=== PATIENT | male | born 1965 | race African-American/Black ===

== ENCOUNTER 2017-11-08 03:30 | Emergency (ER) | payer MEDICAID, MEDICARE, OTHER ==
[~2017-11-08] VITALS: Ht 177.8 cm; Wt 82.0 kg
[~2017-11-08 03:30] MED LIST: NO HOME MEDS
[2017-11-08] MEDS ORDERED: DIPHENHYDRAMINE 50MG/ML VIAL IV ONE (04:15)
[2017-11-08] MEDS ORDERED: METHYLPREDNISOLONE SOD SUCC 125 MG/2 ML VIAL IV ONE (04:15)
[2017-11-08 07:05] VITALS: BP 122/71
== END 2017-11-08 07:06 | disposition home or self-care (01) ==
LOC: ER 03:30
DX: R51 Headache (principal); R22.0 Localized swelling, mass and lump, head; I10 Essential (primary) hypertension; E78.00 Pure hypercholesterolemia, unspecified; F31.9 Bipolar disorder, unspecified; Z98.890 Other specified postprocedural states; Z88.8 Allergy status to other drugs, medicaments and biological substances
CPT/HCPCS: 96374; 96375; 99291; J1200; J2930; Z7610

== ENCOUNTER 2018-08-20 04:02 | Emergency (ER) | payer OTHER ==
[~2018-08-20] VITALS: Ht 170.2 cm; Wt 86.0 kg
[2018-08-20] MEDS ORDERED: MORPHINE SULFATE 4 MG/ML CPJ (NOT FOR IM USE) IV STA (06:46)
[2018-08-20 07:14] LABS: CLARITY URINE CLOUDY (CLEAR); COLOR URINE YELLOW (YELLOW); KETONES URINE NEGATIVE (NEGATIVE); LEUKOCYTE ESTERASE URINE 2+ (NEGATIVE); NITRITE URINE NEGATIVE (NEGATIVE); OCCULT BLOOD URINE 2+ (NEGATIVE); PH URINE 5.5 (4.5-8.0); PROTEIN URINE 3+ (NEGATIVE); SPECIFIC GRAVITY URINE 1.023 (1.005-1.030); UROBILINOGEN URINE 0.2 E.U./dL (0.2-1.0)
[2018-08-20 08:04] LABS: BASOPHILS % 0.4 % (0.0-2.0); EOSINOPHILS % 2.3 % (0.0-5.0); HEMATOCRIT. 34.3 % (42.0-52.0); HEMOGLOBIN. 11.4 g/dL (14.0-18.0); LYMPHOCYTES % 12.6 % (20.0-50.0); MEAN CORPUSCULAR HEMOGLOBIN 30.1 pg (28.0-32.0); MEAN CORPUSCULAR VOLUME 90.3 fL (80.0-94.0); MONOCYTES % 7.9 % (2.0-8.0); NEUTROPHILS % 76.8 % (40.0-76.0); PLATELET 268 x1000/uL (130-400); RED CELL DISTRIBUTION WIDTH 14.6 % (11.6-14.6)
[2018-08-20 08:11] LABS: CHLORIDE 104 mEq/L (98-107)
[2018-08-20 08:12] LABS: INR 1.1; PROTHROMBIN TIME 10.7 sec (9.1-11.1)
[2018-08-20 09:23] VITALS: BP 134/58
== END 2018-08-20 09:23 | disposition home or self-care (01) ==
LOC: ER 04:02
DX: N30.00 Acute cystitis without hematuria (principal); R30.0 Dysuria; F31.9 Bipolar disorder, unspecified; E78.00 Pure hypercholesterolemia, unspecified; I10 Essential (primary) hypertension; Z88.8 Allergy status to other drugs, medicaments and biological substances; Z88.9 Allergy status to unspecified drugs, medicaments and biological substances
CPT/HCPCS: 36415; 80053; 81003; 83690; 85025; 85610; 87086; 96374; 99284; J2270

== ENCOUNTER 2018-11-28 21:07 | Emergency (ER) | payer MEDICAID, OTHER ==
[~2018-11-28] VITALS: Ht 172.7 cm; Wt 93.0 kg
[2018-11-28] MEDS ORDERED: IBUPROFEN 600MG TABLET PO ONE (23:30)
[2018-11-29 00:09] VITALS: BP 152/70
== END 2018-11-29 00:11 | disposition home or self-care (01) ==
LOC: ER 21:07
DX: J39.8 Other specified diseases of upper respiratory tract (principal); F31.9 Bipolar disorder, unspecified; E78.00 Pure hypercholesterolemia, unspecified; Z98.890 Other specified postprocedural states; Z88.8 Allergy status to other drugs, medicaments and biological substances
CPT/HCPCS: 87804; 99283

== ENCOUNTER 2019-07-28 07:32 | Emergency (ER) | payer MEDICARE, MEDICAID ==
[~2019-07-28] VITALS: Ht 172.7 cm; Wt 98.0 kg
[2019-07-28] MEDS ORDERED: SODIUM CHLORIDE 0.9% 1,000 ML IV ONE (08:03)
[2019-07-28] MEDS ORDERED: KETOROLAC 30MG/ML VIAL IV STA (08:03)
[2019-07-28] MEDS ORDERED: METOCLOPRAMIDE HCL 10MG/2ML VIAL IV ONE (08:15)
[2019-07-28 09:57] VITALS: BP 130/72
== END 2019-07-28 09:59 | disposition home or self-care (01) ==
LOC: ER 07:32
DX: B34.9 Viral infection, unspecified (principal)
CPT/HCPCS: 96374; 96375; 99283; J1885; J2765; J7030

== ENCOUNTER 2020-01-17 17:39 | Emergency (ER) | payer BC, MEDICAID, MEDICARE, OTHER ==
[~2020-01-17] VITALS: Ht 177.8 cm; Wt 97.0 kg
[2020-01-17] MEDS ORDERED: ACETAMINOPHEN WITH CODEINE 300/30MG TABLET PO STA (18:04)
[2020-01-17 18:39] LABS: BASOPHILS % 0.5 % (0.0-2.0); EOSINOPHILS % 0.6 % (0.0-5.0); HEMATOCRIT. 44.3 % (42.0-52.0); HEMOGLOBIN. 15.1 g/dL (14.0-18.0); LYMPHOCYTES % 19.7 % (20.0-50.0); MEAN CORPUSCULAR HEMOGLOBIN 28.6 pg (28.0-32.0); MEAN CORPUSCULAR VOLUME 84.2 fL (80.0-94.0); MEAN PLATELET VOLUME 9.2 fl (7.4-10.4); MONOCYTES % 11.2 % (2.0-8.0); PLATELET 239 x1000/uL (130-400); RED BLOOD CELL COUNT 5.27 mill/uL (4.7-6.1); RED CELL DISTRIBUTION WIDTH 13.9 % (11.6-14.6)
[2020-01-17 18:46] LABS: CHLORIDE 104 mEq/L (98-107)
[2020-01-17 20:26] LABS: CLARITY URINE TURBID (CLEAR); COLOR URINE RED (YELLOW); KETONES URINE 1+ (NEGATIVE); LEUKOCYTE ESTERASE URINE 2+ (NEGATIVE); NITRITE URINE POSITIVE (NEGATIVE); OCCULT BLOOD URINE 3+ (NEGATIVE); PH URINE 8.5 (4.5-8.0); PROTEIN URINE 2+ (NEGATIVE)
[2020-01-17 20:58] VITALS: BP 116/78
== END 2020-01-17 21:00 | disposition home or self-care (01) ==
LOC: ER 17:39
DX: N39.0 Urinary tract infection, site not specified (principal); R31.0 Gross hematuria; R03.0 Elevated blood-pressure reading, without diagnosis of hypertension
CPT/HCPCS: 36415; 74176; 80053; 81003; 85025; 99284

== ENCOUNTER 2020-03-31 10:01 | Emergency (ER) | payer BC ==
[~2020-03-31] VITALS: Ht 170.2 cm; Wt 87.0 kg
[2020-03-31 11:18] LABS: BASOPHILS % 0.7 % (0.0-2.0); EOSINOPHILS % 1.4 % (0.0-5.0); HEMATOCRIT. 37.8 % (42.0-52.0); LYMPHOCYTES % 19.9 % (20.0-50.0); MEAN CORPUSCULAR HEMOGLOBIN 30.1 pg (28.0-32.0); MEAN CORPUSCULAR VOLUME 87.5 fL (80.0-94.0); MEAN PLATELET VOLUME 8.4 fl (7.4-10.4); MONOCYTES % 5.4 % (2.0-8.0); NEUTROPHILS % 72.6 % (40.0-76.0); PLATELET 251 x1000/uL (130-400); RED BLOOD CELL COUNT 4.32 mill/uL (4.7-6.1)
[2020-03-31 11:27] LABS: CHLORIDE 111 mEq/L (98-107)
[2020-03-31 11:32] LABS: ETHANOL BLOOD 132 mg/dL
[2020-03-31 11:35] LABS: *AMPHETAMINES SCREEN URINE NEGATIVE (NEGATIVE); *BARBITURATES SCREEN URINE NEGATIVE (NEGATIVE); *BENZODIAZEPINES SCREEN URINE NEGATIVE (NEGATIVE); *COCAINE SCREEN URINE NEGATIVE (NEGATIVE); METHADONE URINE SCREEN NEGATIVE (NEGATIVE); OPIATES URINE SCREEN NEGATIVE (NEGATIVE)
[2020-03-31 11:36] LABS: CANNABINOID URINE SCREEN NEGATIVE (NEGATIVE); PHENCYCLIDINE URINE SCREEN NEGATIVE (NEGATIVE)
[2020-03-31 12:14] VITALS: BP 129/62
== END 2020-03-31 12:24 | disposition home or self-care (01) ==
LOC: ER 10:01
DX: F10.129 Alcohol abuse with intoxication, unspecified (principal); Y90.6 Blood alcohol level of 120-199 mg/100 ml; F31.9 Bipolar disorder, unspecified
CPT/HCPCS: 36415; 80053; 80305; 80307; 80320; 80329; 85025; 99283; G0480

== ENCOUNTER 2020-11-22 20:01 | Emergency (ER) | payer OTHER, MEDICAID ==
[~2020-11-22] VITALS: Ht 175.3 cm; Wt 113.0 kg
[2020-11-22] MEDS ORDERED: ACETAMINOPHEN 325MG TABLET PO STA (21:05)
[2020-11-22] MEDS ORDERED: LORAZEPAM 1MG TABLET PO ONE (21:15)
[2020-11-22 22:05] LABS: BASOPHILS % 0.3 % (0.0-2.0); EOSINOPHILS % 2.4 % (0.0-5.0); HEMATOCRIT. 38.1 % (42.0-52.0); HEMOGLOBIN. 13.2 g/dL (14.0-18.0); LYMPHOCYTES % 15.2 % (20.0-50.0); MEAN CORPUSCULAR HEMOGLOBIN 29.9 pg (28.0-32.0); MEAN CORPUSCULAR VOLUME 86.3 fL (80.0-94.0); MEAN PLATELET VOLUME 8.9 fl (7.4-10.4); MONOCYTES % 6.8 % (2.0-8.0); NEUTROPHILS % 75.3 % (40.0-76.0); PLATELET 212 x1000/uL (130-400); RED BLOOD CELL COUNT 4.41 mill/uL (4.7-6.1); RED CELL DISTRIBUTION WIDTH 13.9 % (11.6-14.6)
[2020-11-22 22:10] LABS: CHLORIDE 107 mEq/L (98-107)
[2020-11-22 22:13] LABS: ETHANOL BLOOD < 10 mg/dL
[2020-11-22 22:14] LABS: CLARITY URINE CLOUDY (CLEAR); COLOR URINE YELLOW (YELLOW); KETONES URINE NEGATIVE (NEGATIVE); LEUKOCYTE ESTERASE URINE 3+ (NEGATIVE); NITRITE URINE POSITIVE (NEGATIVE); OCCULT BLOOD URINE TRACE (NEGATIVE); PROTEIN URINE NEGATIVE (NEGATIVE); SPECIFIC GRAVITY URINE 1.019 (1.005-1.030); UROBILINOGEN URINE 0.2 E.U./dL (0.2-1.0)
[2020-11-22 22:29] LABS: *AMPHETAMINES SCREEN URINE NEGATIVE (NEGATIVE); *BARBITURATES SCREEN URINE NEGATIVE (NEGATIVE); *BENZODIAZEPINES SCREEN URINE NEGATIVE (NEGATIVE); *COCAINE SCREEN URINE NEGATIVE (NEGATIVE)
[2020-11-22 22:30] LABS: CANNABINOID URINE SCREEN NEGATIVE (NEGATIVE); METHADONE URINE SCREEN NEGATIVE (NEGATIVE); OPIATES URINE SCREEN NEGATIVE (NEGATIVE); PHENCYCLIDINE URINE SCREEN NEGATIVE (NEGATIVE)
[2020-11-23] MEDS ORDERED: DOXYCYCLINE HYCLATE 100MG CAPSULE PO SCH
[2020-11-23] MEDS ORDERED: CEFTRIAXONE SODIUM 500 MG/VIAL IM NR
[2020-11-23] MEDS: DOXYCYCLINE HYCLATE 100MG CAPSULE PO SCH ×2 (00:20→17:00)
[2020-11-23] MEDS ORDERED: HALOPERIDOL LACTATE 5MG/ML VIAL IM ONE (14:00)
[2020-11-23] MEDS ORDERED: LORAZEPAM 2MG/ML CPJ IM ONE (14:00)
[2020-11-24] MEDS ORDERED: ACETAMINOPHEN 325MG TABLET PO ONE (02:15)
[2020-11-24 07:45] VITALS: BP 112/71
[2020-11-24] MEDS ORDERED: RISP2 PO (08:09)
[2020-11-24] MEDS ORDERED: NITR100C MT (08:09)
== END 2020-11-24 08:54 | disposition home or self-care (01) ==
LOC: ER 20:01
DX: F32.3 Major depressive disorder, single episode, severe with psychotic features (principal); R45.850 Homicidal ideations; S02.40FA Zygomatic fracture, left side, initial encounter for closed fracture; S02.2XXA Fracture of nasal bones, initial encounter for closed fracture; A54.9 Gonococcal infection, unspecified; N39.0 Urinary tract infection, site not specified; Z20.822 Contact with and (suspected) exposure to COVID-19; X58.XXXA Exposure to other specified factors, initial encounter; Y93.89 Activity, other specified; Y92.488 Other paved roadways as the place of occurrence of the external cause
CPT/HCPCS: 36415; 70450; 70486; 71045; 73610; 80053; 80305; 80307; 80320; 80329; 81003; 85025; 87077; 87086; 87186; 96372; 99285; C9803; J0696; J1630; J2060; G0480

== ENCOUNTER 2020-12-12 20:24 | Emergency (ER) | payer OTHER, MEDICAID ==
[~2020-12-12] VITALS: Ht 172.7 cm; Wt 90.0 kg
[~2020-12-12 20:24] MED LIST changes: +NITR100C MT; +RISP2 PO
[2020-12-12 21:37] LABS: BASOPHILS % 0.5 % (0.0-2.0); EOSINOPHILS % 3.3 % (0.0-5.0); HEMATOCRIT. 38.4 % (42.0-52.0); HEMOGLOBIN. 12.8 g/dL (14.0-18.0); LYMPHOCYTES % 20.5 % (20.0-50.0); MEAN CORPUSCULAR HEMOGLOBIN 29.4 pg (28.0-32.0); MEAN CORPUSCULAR VOLUME 88.1 fL (80.0-94.0); MONOCYTES % 8.5 % (2.0-8.0); NEUTROPHILS % 67.2 % (40.0-76.0); PLATELET 178 x1000/uL (130-400); RED BLOOD CELL COUNT 4.36 mill/uL (4.7-6.1); RED CELL DISTRIBUTION WIDTH 13.8 % (11.6-14.6)
[2020-12-12 21:39] LABS: CLARITY URINE TURBID (CLEAR); COLOR URINE YELLOW (YELLOW); KETONES URINE NEGATIVE (NEGATIVE); LEUKOCYTE ESTERASE URINE 3+ (NEGATIVE); NITRITE URINE POSITIVE (NEGATIVE); OCCULT BLOOD URINE TRACE (NEGATIVE); PROTEIN URINE TRACE (NEGATIVE); SPECIFIC GRAVITY URINE 1.022 (1.005-1.030); UROBILINOGEN URINE 0.2 E.U./dL (0.2-1.0)
[2020-12-12 21:49] LABS: CHLORIDE 104 mEq/L (98-107)
[2020-12-12 21:53] LABS: ETHANOL BLOOD < 10 mg/dL
[2020-12-12 22:02] LABS: *AMPHETAMINES SCREEN URINE NEGATIVE (NEGATIVE); *BARBITURATES SCREEN URINE NEGATIVE (NEGATIVE); *BENZODIAZEPINES SCREEN URINE NEGATIVE (NEGATIVE); *COCAINE SCREEN URINE NEGATIVE (NEGATIVE); METHADONE URINE SCREEN NEGATIVE (NEGATIVE); OPIATES URINE SCREEN NEGATIVE (NEGATIVE)
[2020-12-12 22:03] LABS: CANNABINOID URINE SCREEN NEGATIVE (NEGATIVE); PHENCYCLIDINE URINE SCREEN NEGATIVE (NEGATIVE)
[2020-12-12] MEDS ORDERED: CEFTRIAXONE 1 G PREMIX 50 ML IV NR (23:00)
[2020-12-13] MEDS ORDERED: CEFTRIAXONE SODIUM 1 G/VIAL IM ONE (01:00)
[2020-12-13] MEDS ORDERED: LIDOCAINE HCL 1% 20ML VIAL (Pyxis) INJ INFIL ONE (01:00)
[2020-12-13 10:34] VITALS: BP 126/96
== END 2020-12-13 10:55 | disposition home or self-care (01) ==
LOC: ER 20:24
DX: R45.850 Homicidal ideations (principal); N39.0 Urinary tract infection, site not specified; Z20.822 Contact with and (suspected) exposure to COVID-19; R19.7 Diarrhea, unspecified; I10 Essential (primary) hypertension; T67.5XXA Heat exhaustion, unspecified, initial encounter; X58.XXXA Exposure to other specified factors, initial encounter; Y93.89 Activity, other specified; Y92.89 Other specified places as the place of occurrence of the external cause; F31.9 Bipolar disorder, unspecified; E78.00 Pure hypercholesterolemia, unspecified; F15.10 Other stimulant abuse, uncomplicated; Z88.8 Allergy status to other drugs, medicaments and biological substances
CPT/HCPCS: 36415; 80053; 80305; 80320; 81003; 82962; 85025; 93005; 96372; 99285; J0696; J3490; G0480

== ENCOUNTER 2022-04-17 11:11 | Emergency (ER) | payer OTHER, MEDICAID ==
[~2022-04-17] VITALS: Ht 172.7 cm; Wt 101.0 kg
[2022-04-17 11:17] VITALS: BP 125/93
[2022-04-17 11:57] LABS: BASOPHILS % 0.3 % (0.0-2.0); EOSINOPHILS % 1.3 % (0.0-5.0); HEMATOCRIT. 40.7 % (42.0-52.0); HEMOGLOBIN. 13.3 g/dL (14.0-18.0); LYMPHOCYTES % 8.5 % (20.0-50.0); MEAN CORPUSCULAR HEMOGLOBIN 28.3 pg (28.0-32.0); MEAN CORPUSCULAR VOLUME 86.8 fL (80.0-94.0); MEAN PLATELET VOLUME 8.8 fl (7.4-10.4); MONOCYTES % 5.4 % (2.0-8.0); NEUTROPHILS % 84.5 % (40.0-76.0); PLATELET 232 x1000/uL (130-400); RED BLOOD CELL COUNT 4.69 mill/uL (4.7-6.1); RED CELL DISTRIBUTION WIDTH 14.1 % (11.6-14.6)
[2022-04-17 12:05] LABS: CHLORIDE 113 mEq/L (98-107)
[2022-04-17 12:12] LABS: ETHANOL BLOOD < 10 mg/dL
[2022-04-17 13:08] LABS: *AMPHETAMINES SCREEN URINE NEGATIVE (NEGATIVE); *BARBITURATES SCREEN URINE NEGATIVE (NEGATIVE); *BENZODIAZEPINES SCREEN URINE NEGATIVE (NEGATIVE); *COCAINE SCREEN URINE NEGATIVE (NEGATIVE); CANNABINOID URINE SCREEN NEGATIVE (NEGATIVE); METHADONE URINE SCREEN NEGATIVE (NEGATIVE); OPIATES URINE SCREEN NEGATIVE (NEGATIVE); PHENCYCLIDINE URINE SCREEN NEGATIVE (NEGATIVE)
[2022-04-17 13:39] LABS: CLARITY URINE TURBID (CLEAR); COLOR URINE DARK YELLOW (YELLOW); KETONES URINE 2+ (NEGATIVE); LEUKOCYTE ESTERASE URINE 3+ (NEGATIVE); NITRITE URINE NEGATIVE (NEGATIVE); OCCULT BLOOD URINE 1+ (NEGATIVE); PROTEIN URINE 3+ (NEGATIVE); SPECIFIC GRAVITY URINE 1.023 (1.005-1.030)
[2022-04-17] MEDS ORDERED: ACETAMINOPHEN 325MG TABLET PO ONE (14:30)
== END 2022-04-17 15:22 | disposition left against medical advice (07) ==
LOC: ER 13:16
DX: F31.10 Bipolar disorder, current episode manic without psychotic features, unspecified (principal); R45.851 Suicidal ideations; F15.90 Other stimulant use, unspecified, uncomplicated; I10 Essential (primary) hypertension; T67.01XA Heatstroke and sunstroke, initial encounter; X58.XXXA Exposure to other specified factors, initial encounter; Y93.9 Activity, unspecified; Y92.89 Other specified places as the place of occurrence of the external cause
CPT/HCPCS: 36415; 80053; 80305; 80320; 81003; 85025; 87077; 87186; 99283; G0480

== ENCOUNTER 2022-05-01 00:38 | Emergency (ER) | payer MEDICARE, MEDICAID ==
[~2022-05-01] VITALS: Ht 177.8 cm; Wt 82.0 kg
[2022-05-01 01:02] VITALS: BP 125/81
== END 2022-05-01 09:55 | disposition left against medical advice (07) ==
LOC: ER 00:38
DX: Z53.21 Procedure and treatment not carried out due to patient leaving prior to being seen by health care provider (principal)

== ENCOUNTER 2022-05-04 01:10 | Emergency (ER) | payer MEDICARE, MEDICAID ==
[~2022-05-04] VITALS: Ht 172.7 cm; Wt 117.8 kg
[2022-05-04 03:10] LABS: BASOPHILS % 0.6 % (0.0-2.0); EOSINOPHILS % 1.3 % (0.0-5.0); HEMOGLOBIN. 13.9 g/dL (14.0-18.0); LYMPHOCYTES % 10.4 % (20.0-50.0); MEAN CORPUSCULAR HEMOGLOBIN 28.9 pg (28.0-32.0); MEAN CORPUSCULAR VOLUME 87.3 fL (80.0-94.0); MONOCYTES % 7.7 % (2.0-8.0); RED BLOOD CELL COUNT 4.81 mill/uL (4.7-6.1); RED CELL DISTRIBUTION WIDTH 14.4 % (11.6-14.6)
[2022-05-04 03:25] LABS: CHLORIDE 109 mEq/L (98-107); ETHANOL BLOOD < 10 mg/dL
[2022-05-04 03:44] LABS: MEAN PLATELET VOLUME 8.5 fl (7.4-10.4); PLATELET 270 x1000/uL (130-400)
[2022-05-04] MEDS ORDERED: LIDOCAINE HCL/PF 1% 10 MG/ML 5ML VIAL INFIL ONE (05:30)
[2022-05-04 08:56] LABS: CLARITY URINE TURBID (CLEAR); COLOR URINE YELLOW (YELLOW); KETONES URINE TRACE (NEGATIVE); LEUKOCYTE ESTERASE URINE 3+ (NEGATIVE); NITRITE URINE NEGATIVE (NEGATIVE); OCCULT BLOOD URINE 1+ (NEGATIVE); PROTEIN URINE 3+ (NEGATIVE); SPECIFIC GRAVITY URINE 1.019 (1.005-1.030)
[2022-05-04] MEDS ORDERED: ACETAMINOPHEN 325MG TABLET PO ONE (09:30)
[2022-05-04 09:35] LABS: *AMPHETAMINES SCREEN URINE NEGATIVE (NEGATIVE); *BARBITURATES SCREEN URINE NEGATIVE (NEGATIVE); *BENZODIAZEPINES SCREEN URINE NEGATIVE (NEGATIVE); *COCAINE SCREEN URINE NEGATIVE (NEGATIVE); CANNABINOID URINE SCREEN NEGATIVE (NEGATIVE); METHADONE URINE SCREEN NEGATIVE (NEGATIVE); OPIATES URINE SCREEN NEGATIVE (NEGATIVE); PHENCYCLIDINE URINE SCREEN NEGATIVE (NEGATIVE)
[2022-05-04] MEDS ORDERED: PAROXETINE HCL 10MG TABLET PO SCH (10:00)
[2022-05-04] MEDS: RISPERIDONE 1MG TABLET PO SCH ×2 (11:33→16:08)
[2022-05-04] MEDS: BENZTROPINE MESYLATE 0.5MG TABLET PO SCH ×2 (11:33→16:08)
[2022-05-04] MEDS ORDERED: LEVOFLOXACIN 250MG TABLET PO ONE (12:45)
[2022-05-04 12:52] LABS: BASOPHILS % 0.3 % (0.0-2.0); EOSINOPHILS % 2.4 % (0.0-5.0); HEMATOCRIT. 39.8 % (42.0-52.0); HEMOGLOBIN. 13.5 g/dL (14.0-18.0); LYMPHOCYTES % 14.4 % (20.0-50.0); MEAN CORPUSCULAR HEMOGLOBIN 29.9 pg (28.0-32.0); MEAN CORPUSCULAR VOLUME 88.2 fL (80.0-94.0); MEAN PLATELET VOLUME 8.2 fl (7.4-10.4); MONOCYTES % 9.8 % (2.0-8.0); NEUTROPHILS % 73.1 % (40.0-76.0); PLATELET 231 x1000/uL (130-400); RED BLOOD CELL COUNT 4.51 mill/uL (4.7-6.1)
[2022-05-04 19:39] VITALS: BP 137/74
== END 2022-05-04 21:40 | disposition short-term general hospital (02) ==
LOC: ER 01:10
DX: R45.851 Suicidal ideations (principal); F20.0 Paranoid schizophrenia; F31.9 Bipolar disorder, unspecified; S01.81XA Laceration without foreign body of other part of head, initial encounter; Z20.822 Contact with and (suspected) exposure to COVID-19; X99.8XXA Assault by other sharp object, initial encounter; Y93.89 Activity, other specified; Y92.89 Other specified places as the place of occurrence of the external cause; E78.5 Hyperlipidemia, unspecified; N40.0 Benign prostatic hyperplasia without lower urinary tract symptoms
CPT/HCPCS: 12011; 36415; 70450; 70486; 80053; 80305; 80307; 80320; 80329; 81003; 82962; 85025; 87077; 87086; 87186; 87426; 99285; C9803; J3490; U0003; U0005; G0480

== ENCOUNTER 2022-06-11 21:28 | Emergency (ER) | payer MEDICARE, MEDICAID ==
[~2022-06-11] VITALS: Ht 170.2 cm; Wt 116.0 kg
[2022-06-11] MEDS ORDERED: RISPERIDONE 0.5MG TABLET PO ONE (22:15)
[2022-06-11 23:12] LABS: BASOPHILS % 0.4 % (0.0-2.0); EOSINOPHILS % 2.9 % (0.0-5.0); HEMATOCRIT. 39.5 % (42.0-52.0); HEMOGLOBIN. 13.1 g/dL (14.0-18.0); LYMPHOCYTES % 19.2 % (20.0-50.0); MEAN CORPUSCULAR HEMOGLOBIN 28.9 pg (28.0-32.0); MEAN CORPUSCULAR VOLUME 87.1 fL (80.0-94.0); MEAN PLATELET VOLUME 8.7 fl (7.4-10.4); MONOCYTES % 6.5 % (2.0-8.0); PLATELET 208 x1000/uL (130-400); RED BLOOD CELL COUNT 4.54 mill/uL (4.7-6.1); RED CELL DISTRIBUTION WIDTH 13.9 % (11.6-14.6)
[2022-06-11 23:18] LABS: CHLORIDE 106 mEq/L (98-107)
[2022-06-11 23:24] LABS: ETHANOL BLOOD < 10 mg/dL
[2022-06-11] MEDS ORDERED: RISPERIDONE 0.5MG TABLET PO NR (23:45)
[2022-06-12 01:45] LABS: CLARITY URINE TURBID (CLEAR); COLOR URINE YELLOW (YELLOW); KETONES URINE TRACE (NEGATIVE); LEUKOCYTE ESTERASE URINE 3+ (NEGATIVE); NITRITE URINE NEGATIVE (NEGATIVE); OCCULT BLOOD URINE NEGATIVE (NEGATIVE); PH URINE 7.5 (4.5-8.0); PROTEIN URINE 1+ (NEGATIVE); SPECIFIC GRAVITY URINE 1.022 (1.005-1.030)
[2022-06-12 02:00] LABS: *AMPHETAMINES SCREEN URINE NEGATIVE (NEGATIVE); *BARBITURATES SCREEN URINE NEGATIVE (NEGATIVE); *BENZODIAZEPINES SCREEN URINE NEGATIVE (NEGATIVE); *COCAINE SCREEN URINE NEGATIVE (NEGATIVE); CANNABINOID URINE SCREEN NEGATIVE (NEGATIVE); METHADONE URINE SCREEN NEGATIVE (NEGATIVE); OPIATES URINE SCREEN NEGATIVE (NEGATIVE); PHENCYCLIDINE URINE SCREEN NEGATIVE (NEGATIVE)
[2022-06-12] MEDS ORDERED: CEPHALEXIN 250MG CAPSULE PO SCH (05:00)
[2022-06-12] MEDS ORDERED: PAROXETINE HCL 10MG TABLET PO SCH (10:30)
[2022-06-12 11:30] VITALS: BP 144/76
[2022-06-12] MEDS ORDERED: BENZTROPINE MESYLATE 1MG TABLET PO SCH (21:00)
[2022-06-12] MEDS ORDERED: RISPERIDONE 1MG TABLET PO SCH (21:00)
== END 2022-06-12 11:43 | disposition home or self-care (01) ==
LOC: ER 21:28
DX: F33.9 Major depressive disorder, recurrent, unspecified (principal); R45.850 Homicidal ideations; R44.0 Auditory hallucinations; R44.1 Visual hallucinations; Z20.822 Contact with and (suspected) exposure to COVID-19; N39.0 Urinary tract infection, site not specified; I10 Essential (primary) hypertension; E78.5 Hyperlipidemia, unspecified
CPT/HCPCS: 36415; 80053; 80305; 80307; 80320; 80329; 81003; 85025; 87077; 87086; 87186; 99285; C9803; U0003; U0005; G0480

== ENCOUNTER 2024-06-28 12:26 | Emergency (ER) | payer MEDICARE, OTHER ==
[~2024-06-28] VITALS: Ht 175.3 cm; Wt 110.0 kg
[2024-06-28 12:28] VITALS: O2SAT 95
[2024-06-28 12:39] VITALS: BP 149/96; PULSE 82; RESP 18; TEMP 98.2; O2SAT 97
[2024-06-28 16:36] LABS: CLARITY URINE TURBID (CLEAR); COLOR URINE YELLOW (YELLOW); GLUCOSE URINE NEGATIVE (NEGATIVE); KETONES URINE NEGATIVE (NEGATIVE); LEUKOCYTE ESTERASE URINE 3+ (NEGATIVE); NITRITE URINE NEGATIVE (NEGATIVE); OCCULT BLOOD URINE TRACE (NEGATIVE); PROTEIN URINE 2+ (NEGATIVE)
[2024-06-28 17:12] LABS: BACTERIA URINE 4+; SQUAMOUS EPITHELIAL CELL URINE FEW /lpf (RARE/1+)
[2024-06-28 17:13] LABS: RBC URINE 0-2 /hpf (0-2); WBC URINE 25-50 /hpf (0-2)
[2024-06-28] MEDS ORDERED: CEPH500C2 MT (17:28)
[2024-06-28] MEDS ORDERED: TAMS-11 MT (17:46)
[2024-06-28] MEDS ORDERED: TOPUD MT (17:46)
== END 2024-06-28 18:57 | disposition home or self-care (01) ==
LOC: ER 12:26
DX: N39.0 Urinary tract infection, site not specified (principal); R30.0 Dysuria; F31.9 Bipolar disorder, unspecified; E78.00 Pure hypercholesterolemia, unspecified; Z98.890 Other specified postprocedural states; Z79.899 Other long term (current) drug therapy
CPT/HCPCS: 81003; 99283

== ENCOUNTER 2025-07-21 03:45 | Emergency (ER) | payer MEDICARE, MEDICAID ==
[~2025-07-21 03:45] MED LIST changes: +CEPH500C2 MT; +TAMS-54 MT; +TOPUD MT
== END 2025-07-21 03:48 | disposition left against medical advice (07) ==
LOC: ER 03:45
DX: Z53.21 Procedure and treatment not carried out due to patient leaving prior to being seen by health care provider (principal)

== ENCOUNTER 2025-09-20 11:36 | Emergency (ER) | payer MEDICAID ==
[~2025-09-20] VITALS: Ht 172.7 cm; Wt 116.0 kg
[2025-09-20 11:42] VITALS: O2SAT 97
[2025-09-20 11:51] VITALS: BP 138/84; PULSE 93; RESP 16; TEMP 36.8; O2SAT 100
[2025-09-20] MEDS ORDERED: AMOX1TAB16 MT (12:41)
[2025-09-20] MEDS ORDERED: BENZ9GEL TP (12:41)
[2025-09-20] MEDS ORDERED: IBUP-1455 MT (12:42)
[2025-09-20] MEDS: KETOROLAC 30MG/ML VIAL IM ONE (12:46)
== END 2025-09-20 12:52 | disposition home or self-care (01) ==
LOC: ER 11:36
DX: K02.9 Dental caries, unspecified (principal); E78.00 Pure hypercholesterolemia, unspecified; F31.9 Bipolar disorder, unspecified; Z79.899 Other long term (current) drug therapy
CPT/HCPCS: 99283; 96372; J1885

== ENCOUNTER 2025-10-24 23:41 | Emergency (ER) | payer MEDICAID ==
[~2025-10-24] VITALS: Ht 172.7 cm; Wt 111.4 kg
[~2025-10-24 23:41] MED LIST changes: +AMOX1TAB16 MT; +BENZ9GEL TP; +IBUP-1455 MT
[2025-10-25 00:09] VITALS: O2SAT 99
[2025-10-25 01:20] LABS: BASOPHILS % 0.3 % (0.0-2.0); EOSINOPHILS % 2.0 % (0.0-5.0); HEMATOCRIT. 39.2 % (42.0-52.0); HEMOGLOBIN. 13.0 g/dL (14.0-18.0); LYMPHOCYTES % 13.8 % (20.0-50.0); MEAN PLATELET VOLUME 8.8 fl (7.4-10.4); MONOCYTES % 8.2 % (2.0-8.0); NEUTROPHILS % 75.7 % (40.0-76.0); PLATELET 254 x1000/uL (130-400); RED BLOOD CELL COUNT 4.54 mill/uL (4.7-6.1); RED CELL DISTRIBUTION WIDTH 14.5 % (11.6-14.6)
[2025-10-25 01:37] LABS: CREATININE 1.0 mg/dL (0.6-1.3); UREA NITROGEN BLOOD 11 mg/dL (9-23)
[2025-10-25 01:38] LABS: ETHANOL BLOOD < 10 mg/dL (<10); PROTEIN TOTAL 7.4 g/dL (6.0-8.3)
[2025-10-25 01:39] LABS: ASPARTATE AMINOTRANSFERASE 28 IU/L (<34); BILIRUBIN DIRECT 0.2 mg/dL (<=3.0); BILIRUBIN TOTAL 0.6 mg/dL (0.1-1.0)
[2025-10-25 02:42] LABS: CLARITY URINE TURBID (CLEAR); COLOR URINE YELLOW (YELLOW); GLUCOSE URINE NEGATIVE (NEGATIVE); KETONES URINE TRACE (NEGATIVE); LEUKOCYTE ESTERASE URINE 3+ (NEGATIVE); NITRITE URINE NEGATIVE (NEGATIVE); OCCULT BLOOD URINE 2+ (NEGATIVE); PH URINE 5.5 (4.5-8.0); PROTEIN URINE 1+ (NEGATIVE); SPECIFIC GRAVITY URINE 1.021 (1.005-1.030); UROBILINOGEN URINE 1.0 E.U./dL (0.2-1.0)
[2025-10-25 03:37] LABS: *AMPHETAMINES SCREEN URINE NEGATIVE (NEGATIVE); *BENZODIAZEPINES SCREEN URINE NEGATIVE (NEGATIVE)
[2025-10-25 03:38] LABS: *BARBITURATES SCREEN URINE NEGATIVE (NEGATIVE); *COCAINE SCREEN URINE NEGATIVE (NEGATIVE); CANNABINOID URINE SCREEN NEGATIVE (NEGATIVE); ECSTASY MDMA SCREEN URINE NEGATIVE (NEGATIVE); METHADONE URINE SCREEN NEGATIVE (NEGATIVE); OPIATES URINE SCREEN NEGATIVE (NEGATIVE); PHENCYCLIDINE URINE SCREEN NEGATIVE (NEGATIVE)
[2025-10-25 04:09] LABS: SQUAMOUS EPITHELIAL CELL URINE 1+ /lpf (RARE/1+)
[2025-10-25 04:13] LABS: WBC URINE 15-25 /hpf (0-2)
[2025-10-25 04:15] LABS: RBC URINE 0-2 /hpf (0-2)
[2025-10-25 04:16] LABS: BACTERIA URINE 4+
[2025-10-25 09:51] VITALS: BP 147/94; PULSE 88; RESP 18; TEMP 36.8; O2SAT 99
[2025-10-25] MEDS: IBUPROFEN 800MG TABLET PO ONE (09:56)
[2025-10-25] MEDS: NITROFURANTOIN 100MG M/M CAPSULE PO ONE (09:56)
== END 2025-10-25 09:50 ==
LOC: ER 23:41
DX: F20.9 Schizophrenia, unspecified (principal); F31.9 Bipolar disorder, unspecified; E78.00 Pure hypercholesterolemia, unspecified; Z79.899 Other long term (current) drug therapy; Z91.199 Patient's noncompliance with other medical treatment and regimen due to unspecified reason; Z20.822 Contact with and (suspected) exposure to COVID-19
CPT/HCPCS: 36415; 80048; 80076; 80305; 80307; 80320; 80329; 81003; 85025; 87077; 87186; 87426; 93005; 99285; G0480